=== PATIENT | female | born 1965 | race Asian ===

== ENCOUNTER → 2024-08-01 13:43 | Outpatient (CLI) | payer OTHER, SELFPAY ==
--- NOTE | 2024-08-01 13:46 | DI.US.S_ITS ---
PROCEDURE: US PELVIC COMPLETE INDICATIONS: unopposed estrogen therapy TECHNIQUE: Real-time scanning was performed of the pelvic organs, with image documentation. Additional endovaginal scanning was necessary due to incomplete visualization of the adnexal and endometrial structures by transabdominal scanning. COMPARISON: None. FINDINGS: Uterus: Uterus is anteverted and normal in size at 8.1 x 5.6 x 5.7 cm. The myometrium is heterogeneous. No discrete uterine fibroid is seen. The endometrium measures 6.4 mm combined thickness. No endometrial mass or fluid. Ovaries: The ovaries are not visualized. No adnexal mass is seen. Other: No pathologic free abdominal or pelvic fluid. IMPRESSION: 1. Mildly enlarged uterus with mildly heterogeneous myometrial echotexture. No discrete uterine fibroids are seen. 2. No endometrial mass or fluid. 3. Bilateral ovaries are not visualized. No adnexal mass is seen. We strive to produce accurate, complete, and clear reports of imaging services. To assist us in improving patient care, this report was composed using standard report templates and voice recognition software. Therefore, it may contain abnormal punctuation, insertions and/or omissions. Occasional wrong-word or sound-alike substitutions may occur. Though we review the report and make efforts to correct it, we do recommend that the report be read carefully in proper context to recognize any text inaccuracies. Dictated by: Jose J Montes M.D. on 08/02/2024 at 11:12 Approved by: Jose J Montes M.D. on 08/02/2024 at 11:13
== END ==
PROVIDERS: Referring Provider Obstetrics & Gynecology; Visit Provider Obstetrics & Gynecology
DX: N85.2 Hypertrophy of uterus (principal); Z79.890 Hormone replacement therapy
CPT/HCPCS: 76830; 76856

== ENCOUNTER 2024-10-07 12:56 | Day surgery (SDC) | payer OTHER, SELFPAY ==
[2024-09-27 10:01] VITALS: BMI 29.9
[2024-10-07] VITALS (9 sets, daily range): BP systolic 112–154; BP diastolic 80–94; PULSE 67–82; RESP 10–18; TEMP 36.1–36.6; O2SAT 95–98; BMI 29.5
--- NOTE | 2024-10-07 | PATH_ITS ---
[facility] Accession Number: [id number] No. of containers..01 Tissue . 01 Material submitted: . endometrium - ENDOMETRIAL CURETTINGS . 01 Diagnosis: ENDOMETRIUM, CURETTINGS: Benign, predominantly endocervical, scant ectocervical, and rare inactive endometrial tissue, specimen overall suboptimal to evaluate for endometrial pathlologies. MRV 10/14/2024 1321 Local . 01 Electronically signed: . Alfonso Mansfield MD, Pathologist NPI- [id number] . 01 Gross description: . The specimen is received in formalin with two patient identifiers and endometrial curettings, and consists of a 0.8 x 0.2 x 0.2 cm aggregate of blood-tinged mucus and horowitz soft tissue, which is filtered and entirely submitted in cassette A1. ([id number]) /MRV 10/11/2024 1448 Local . 01 Pathologist provided ICD-10: R93.5 . 01 CPT . 440373 Specimen Comment: A courtesy copy of this report has been sent to Pathology Performed at: [address] [address], [place], [place] [id number] MD Joni Mason MD Phone: [phone]
[2024-10-07] MEDS: LACTATED RINGERS 1,000 ML 42 ML IV (14:28)
[2024-10-07] MEDS: FAMOTIDINE 20 MG/2 ML VIAL IV (14:28)
--- NOTE | 2024-10-07 14:39 | PM.PREOP ---
Pre-operative Note Interval Note History & Physical reviewed/Exam performed by Physician: Yes Changes to H&P: No ASA Class (for procedural sedation): II
--- NOTE | 2024-10-07 15:56 | SUR.OPER ---
Lithotomy on padded OR bed, head on pillow, arms secured on padded arm boards at <90 degrees abduction. Legs secured in padded yellow fins stirrups. Surgeon in room at time of positioning, all pressure points padded
[2024-10-07] MEDS: SILVER NITRATE STICK 1 EACH TOP (16:00)
--- NOTE | 2024-10-07 16:02 | P.OP_ITS ---
Operative Date/Time/Diagnoses Date of procedure: 10/07/24 Time of procedure: 16:03 Pre-op diagnosis: PMB Post-op diagnosis: same Procedure & Clinicians Procedure: hysteroscopy, D&C, mirena IUD Same procedure(s) as scheduled: Yes Indications: abnormal pelvic US, PMB with historical unopposed estrogen therapy Surgeon: Genesis De La Fuente Click Yes if Unassisted: Yes Anesthesia Type: General Operative Notes Findings: normal external female genitalia intrauterine cavity with dense scar consistent with prior endometrial ablation, unable to visualize ostia secondary to scar no gross abnormality visualized Specimen(s): other (endometrial currettings (scant sample)) Prosthetic devices, grafts, tissues, transplants, or devices: mirena IUD obtained from office supply: S/N [id number] Exp Lot [id number] Applied: none and implant(s) (mirena IUD ) Estimated Blood Loss (mL): 0 Procedure in detail: Pt was taken to the operating room, transferred to OR table and anesthesia was induced with placement of LMA.? Pt had her legs placed in [employer] stirrups and an exam under anesthesia was performed. The patient was prepped and draped in a sterile fashion.? A time out was performed. ?The bladder was emptied via straight catheter in sterile fashion.? A sterile speculum was inserted into the vagina.? The cervix was visualized and grasped anteriorly using a single tooth tenaculum.? The uterus sounded to 7cm and the cervical os was serially dilated using Monzon dilators up to 17f to allow for passage of the hysteroscope.? The 5mm 0 degree hysteroscope was then inserted into the uterus with findings as noted.? The hysteroscope was removed and the uterus was sharply curetted until a gritty texture was noted throughout.? The mirena IUD obtained from office supply was placed per assistant professor of dietetics instructions, strings trimmed to 3cm. The tenaculum was removed and hemostasis was noted at insertion sites.? The speculum was removed and hemostasis was again noted to be excellent.? The patient then had her legs taken out of stirrups.? The patient tolerated the procedure well and without difficulty.? The patient was awakened from anesthesia and taken to PACU in stable condition. Complications: none Post-operative Condition: stable Disposition: PACU Plan for aftercare: anticipate dc to home pending postoperative recovery, routine postoperative f/u in office as scheduled
[2024-10-07] MEDS: ACETAMINOPHEN IV 1,000 MG/100 ML VIAL 400 MG IV (16:15)
[2024-10-07] MEDS: KETOROLAC 30 MG/ML VIAL IV (16:15)
== END 2024-10-07 17:24 | disposition home or self-care (01) ==
PROVIDERS: PCP Student in an Organized Health Care Education/Training Program; Referring Provider Obstetrics & Gynecology; Visit Provider Obstetrics & Gynecology
PROC: 0UDB8ZZ Extraction of Endometrium, Via Natural or Artificial Opening Endoscopic (ICD-10-PCS; CPT 58558; principal; 2024-10-07 14:30)
DX: N95.0 Postmenopausal bleeding (principal); Z30.430 Encounter for insertion of intrauterine contraceptive device; R93.5 Abnormal findings on diagnostic imaging of other abdominal regions, including retroperitoneum
CPT/HCPCS: 58558; 58300; C1713; J0131; J1100; J1885; J2250; J2405; J2704; J3010; J7298

== ENCOUNTER → 2024-12-12 14:02 | Outpatient (CLI) | payer OTHER, SELFPAY ==
--- NOTE | 2024-12-27 11:50 | DIET.OUTPTC ---
Dietary Outpatient Consult Consult Date:12/12/24 Assessment:? 59 y F referred to dietitian for obesity. Was on wegovy, causing lots of nausea, switching to trizepatide but issue with insurance so currently hasn't tried yet. Skipping wegovy dose this week per PCP recc. No weight loss with wegovy, but has seen difference in appetite, eats 1/2 of what used to eat. Fridays injects the med, feels unwell next day and nauseated, only eats 1 meal. Looking for help establishing meal plan and ensuring getting right nutrients in at the meals. Never been a morning eater, starts feeling a little nauseated if going too long without eating. GI symptoms: BM every other day now type 2-3 on bristol stool chart Diet Recall: coffee latte w/ oatmilk 1-2pm-deli turkey sandwich on sourdough bread with avocado and cheese + fruit + little bit of chips + 2x/wk has 4 oz luis harshad soda 7-8pm- 3 oz meat, serving of rice, vegs 1 cup Fluids: 1 bottle wine per week between spouse and her; 15-30 oz bottle 3-4x/day of water 11/11/2513:16 Height 5 ft 7.5 in Weight 191 lb BMI 29.5 Activity: pilates 5x/wk Nutrition Diagnosis:? Altered GI function r/t changes in GI motility causing nausea and suppressed appetite aeb daily nausea reported Inadequate fiber intake r/t reduced appetite and smaller portions aeb diet recall <20 g fiber per day Interventions:? Discussed and provided appropriate resources on the following: -Small freq meals to prevent nausea and get enough protein intake and fiber -Avoid skipping meals -Avoiding higher fat foods day before and day of taking medication (out to eat, fried foods, creamy dishes, coconut milk), reducing portions/intakes overall if symptoms persist and monitoring for symptom improvement -Avoiding EtOH intakes day before and day of taking medication, eliminating overall if symptoms persist and monitoring for symptom improvement -Adequate protein intake, protein sources Goals: -Eating Arabic yogurt/berries/granola mid-morning meal to prevent nausea and get enough protein +3-7 g fiber -Split lunch meal in half and eat other half at 4pm -Eat 10am, 1pm, 4pm, 7pm EER: 65-75 g protein (1g/kg of adjusted IBW per weight loss goals on semaglutide vs 20% kcals) Monitoring/Evaluations:? Call/portal message if ongoing nausea doesn't resolve with above and/or no weight loss Electronically Signed by: Suzanne Ramirez Clinical Dietitian [address] [address]
== END ==
LOC: DIET 14:02
PROVIDERS: PCP Student in an Organized Health Care Education/Training Program; Referring Provider Student in an Organized Health Care Education/Training Program
DX: E66.9 Obesity, unspecified (principal); Z71.3 Dietary counseling and surveillance
CPT/HCPCS: 97802